=== PATIENT | male | born 1940 | race Caucasian/White ===

== ENCOUNTER → 2018-05-25 | Day surgery (SDC) | payer MEDICARE, OTHER ==
[2018-05-24 11:44] LABS: BASOPHILS % 0.5 % (0.0-1.0); EOSINOPHILS # (AUTO) 0.2 (0.0-0.4); EOSINOPHILS % 2.5 % (0.0-6.0); HEMOGLOBIN 16.1 g/dL (14.0-18.0); LYMPHOCYTES # (AUTO) 1.8 (1.0-3.2); MEAN CORPUSCULAR HEMOGLOBIN 33.6 pg (28-32); MEAN CORPUSCULAR HGB CONC 34.3 g/dL (31-35); MEAN CORPUSCULAR VOLUME 98.1 fL (81-99); MONOCYTES # (AUTO) 0.7 (0.2-0.8); MONOCYTES % 11.5 % (4.4-11.3); NEUTROPHILS # (AUTO) 3.4 (2.1-6.9); NEUTROPHILS % 55.3 % (38.7-80.0); PLATELET COUNT 173 x10e3/uL (140-360); RED BLOOD COUNT 4.79 x10e6/uL (4.3-5.7); RED CELL DISTRIBUTION WIDTH 12.8 % (11.7-14.4)
--- NOTE | 2018-05-24 11:52 | Diagnostic Imaging Report ---
PROCEDURE: Frontal and lateral views of the chest. COMPARISON: None. INDICATIONS: PREOPERATIVE CHEST XRAY FOR UROLOGY SURGERY FINDINGS: Lines/tubes: None. Lungs: The lungs are mildly hyperinflated. There is no evidence of pneumonia or pulmonary edema. Pleura: There is no pleural effusion or pneumothorax. Heart and mediastinum: Cardiac silhouette is unremarkable. Pulmonary vasculature is normal. Bones: No acute bony abnormality. Degenerative changes in the thoracic spine. IMPRESSION: 1. mildly hyperinflated lungs, which may be secondary to COPD. No consolidation or effusion. Jerad Mcguire M.D. Dictated by: Jerad Mcguire M.D. on 05/24/2018 at 11:57 Electronically approved by: Jerad Mcguire M.D. on 05/24/2018 at 11:57
[2018-05-24 12:00] LABS: ANION GAP 11.5 mmol/L (8-16); BLOOD UREA NITROGEN 15 mg/dL (7-26); BUN/CREATININE RATIO 17 (6-25); CALCIUM 9.8 mg/dL (8.4-10.2); CARBON DIOXIDE 30 mmol/L (22-29); CHLORIDE 104 mmol/L (98-107); CREATININE, SERUM 0.89 mg/dL (0.72-1.25); EST GLOMERULAR FILTRATION RATE > 60 ML/MIN (60-); GLUCOSE 101 mg/dL (74-118); POTASSIUM 5.5 mmol/L (3.5-5.1); SODIUM 140 mmol/L (136-145)
[~2018-05-25] MED LIST: ASPIR 8181 MG PO; BELLADONNA/OPIUM 30 MG SUPP RC ONE; CEFTRIAXONE SOD 1 GM VIAL ONE; CINNAMON500 MG PO; CO Q10200 MG PO; D3 PO; DEXAMETHASONE SOD PHOS INJ 4 MG/ML VIAL ONE; FENTANYL CITRATE/PF 100MCG/2 ML INJ ONE; FISH OIL 1,2001 EAC1 PO; GENTAMICIN 80MG/NS 100 ML 200 ML IV ONE; IOPAMIDOL 610MG/1ML 300 MG/ML VIAL IV ONE; LIDOCAINE HCL 2% LOCAL INJ 5 ML SDV VIAL INJ ONE; MULTI-VITAMIN1 EACH PO; ONDANSETRON HCL INJ 2 MG/ML VIAL ONE; PROPOFOL IV EMULSION 10 MG/ML 20 ML VIAL ONE; SEVOFLURANE INHAL SOLN 250 ML PEN BTL ONE; SIMVASTATIN20 MG PO; TURMERIC1 GM PO
--- NOTE | 2018-07-02 05:20 | Operative Report ---
DATE OF PROCEDURE: May 25, 2018 PREOPERATIVE DIAGNOSES: 1. Obstructive BPH. 2. Incomplete bladder emptying. POSTOPERATIVE DIAGNOSES: 1. Obstructive BPH. 2. Incomplete bladder emptying. OPERATIONS PERFORMED: 1. Cystourethroscopy with bilateral ureteral catheterization and retrograde ureteropyelography (separate procedure performed for the incomplete bladder emptying). 2. Interpretation of retrograde ureteropyelography. 3. Supervision of fluoroscopy. No radiologist present. 4. Cystourethroscopy with transurethral resection of the prostate utilizing the plasma button electrode. ANESTHESIA: General. COMPLICATIONS: None. CLINICAL SUMMARY: Ananda Pate is a 77-year-old man with obstructive BPH. He is failing medical therapy. He has a postvoid residual of 93 mL and the urinary maximum flow rate of only 6 mL per second. The patient understands the risks, benefits and alternatives of various modalities of managing BPH and elected to proceed with surgery today as planned. He is aware of the risks of bleeding, infection, injury to adjacent structures, incontinence, impotence, need for additional procedures and he elected to proceed. OPERATIVE PROCEDURE IN DETAIL: Informed consent was verified. Ananda Pate was properly identified and taken to the operating room, placed on the cystoscopy table in supine position. Anesthesia was uneventfully begun. The patient was then carefully and gently repositioned in the dorsal lithotomy position with all pressure points well padded. His genitalia were prepared and draped in usual sterile fashion. A 22.5-Zambian cystoscope sheath with the obturator in place was atraumatically inserted into the patient's urethra. It was guided down the normal distal urethra through the normal sphincteric region and into the prostate bed where we encountered visually obstructing BPH with highly elevated median bar and kissing lateral lobes. Panendoscopy of the urinary bladder revealed grade 2 trabeculations, but no tumors and no stones and no true diverticula. No suspicious lesions were identified. An 8-[place]ambian catheter was used to cannulate each ureter and retrograde ureteropyelography was performed. Interpretation of retrograde ureteropyelography: Contrast was instilled in retrograde fashion bilaterally. There were no tumors, no stones and no diverticula. Unobstructed drainage was observed bilaterally fluoroscopically. The resectoscope was atraumatically inserted. We then utilized the plasma button electrode to vaporize the prostate from the bladder neck, but never past the verumontanum and down to the surgical capsule. As we got to the surgical capsule located between the transition of the peripheral zone, there were numerous prostatic dilated ducts with intraprostatic stones. Innumerable stones were exposed and eventually evacuated. This finding confirms the suspicion that the patient has had a chronic prostatitis that has been very longstanding. We obtained excellent hemostasis. We verified all debris was removed from the bladder. The resectoscope was withdrawn. Navarro catheter was placed. He was placed on continuous irrigation with clear efflux. The patient was then uneventfully reversed from anesthesia and taken to the recovery room in stable condition. There were no complications during the procedure. The patient tolerated the procedure well. Estimated blood loss was minimal. Explicit postoperative instructions were given and we will plan on following the patient up in the office and we will perform his followup uroflowmetry and bladder ultrasonography. Job#: [id number]
== END | disposition home or self-care (01) ==
LOC: OR 05:53
PROVIDERS: ATTEND Urology
DX: N40.1 Benign prostatic hyperplasia with lower urinary tract symptoms (principal); N13.8 Other obstructive and reflux uropathy; R39.14 Feeling of incomplete bladder emptying; N42.0 Calculus of prostate; N41.9 Inflammatory disease of prostate, unspecified; N32.89 Other specified disorders of bladder; Z01.810 Encounter for preprocedural cardiovascular examination; Z01.812 Encounter for preprocedural laboratory examination; Z01.818 Encounter for other preprocedural examination; Z79.82 Long term (current) use of aspirin
CPT/HCPCS: 36415 ×2; 52005; 52601; 71046; 74420; 80048; 84132; 85025; 88300; 93005; C1758; J0696; J1100; J1580; J2001; J2405; Q9967

== ENCOUNTER → 2018-09-24 | Day surgery (SDC) | payer MEDICARE, OTHER ==
--- NOTE | 2018-09-20 16:12 | Diagnostic Imaging Report ---
EXAMINATION: CHEST 2 VIEWS INDICATION: Urologic Stricture. Preop COMPARISON: None FINDINGS: TUBES and LINES: None. LUNGS: The lungs are hyperinflated with chronic appearing change. There is no evidence of pneumonia or pulmonary edema. PLEURA: No pleural effusion or pneumothorax. HEART AND MEDIASTINUM: The cardiomediastinal silhouette is unremarkable. BONES AND SOFT TISSUES: No acute osseous lesion. Soft tissues are unremarkable. UPPER ABDOMEN: No free air under the diaphragm. IMPRESSION: Hyperinflated lungs with chronic appearing change. Signed by: Dr. Jairo Gupta M.D. on 09/20/2018 4:08 PM
[2018-09-20 16:16] LABS: BASOPHILS % 0.4 % (0.0-1.0); EOSINOPHILS # (AUTO) 0.2 (0.0-0.4); EOSINOPHILS % 3.5 % (0.0-6.0); HEMATOCRIT 46.4 % (38.2-49.6); HEMOGLOBIN 15.6 g/dL (14.0-18.0); MEAN CORPUSCULAR HEMOGLOBIN 33.5 pg (28-32); MEAN CORPUSCULAR HGB CONC 33.6 g/dL (31-35); MEAN CORPUSCULAR VOLUME 99.8 fL (81-99); MONOCYTES # (AUTO) 0.7 (0.2-0.8); MONOCYTES % 10.1 % (4.4-11.3); NEUTROPHILS # (AUTO) 3.9 (2.1-6.9); NEUTROPHILS % 56.9 % (38.7-80.0); PLATELET COUNT 200 x10e3/uL (140-360); RED BLOOD COUNT 4.65 x10e6/uL (4.3-5.7); RED CELL DISTRIBUTION WIDTH 12.5 % (11.7-14.4)
[2018-09-20 17:17] LABS: ANION GAP 15.1 mmol/L (8-16); BLOOD UREA NITROGEN 19 mg/dL (7-26); BUN/CREATININE RATIO 23 (6-25); CALCIUM 9.8 mg/dL (8.4-10.2); CARBON DIOXIDE 27 mmol/L (22-29); CHLORIDE 103 mmol/L (98-107); CREATININE, SERUM 0.83 mg/dL (0.72-1.25); EST GLOMERULAR FILTRATION RATE > 60 ML/MIN (60-); GLUCOSE 95 mg/dL (74-118); POTASSIUM 4.1 mmol/L (3.5-5.1); SODIUM 141 mmol/L (136-145)
[~2018-09-24] MED LIST changes: +ACETAMINOPHEN/CODEINE 300MG - 30MG TAB ONE; -BELLADONNA/OPIUM 30 MG SUPP RC ONE; +BELLADONNA/OPIUM 60 MG SUPP PR ONE; +DEXAMETHASONE SOD PHOS INJ 4 MG/ML VIAL IV ONE; -DEXAMETHASONE SOD PHOS INJ 4 MG/ML VIAL ONE; +EPHEDRINE SULFATE INJ 50 MG/10 ML SYR IV ONE; -GENTAMICIN 80MG/NS 100 ML 200 ML IV ONE; +LIDOCAINE JELLY 2% 10ML URO-JET ONE; +MIDAZOLAM HCL 2 MG/2 ML VIAL ONE; +ONDANSETRON HCL INJ 2 MG/ML VIAL IV ONE; -ONDANSETRON HCL INJ 2 MG/ML VIAL ONE; +PROPOFOL IV EMULSION 10 MG/ML 20 ML VIAL IV ONE; -PROPOFOL IV EMULSION 10 MG/ML 20 ML VIAL ONE; +SEVOFLURANE INHAL SOLN 250 ML PEN BTL INH ONE; -SEVOFLURANE INHAL SOLN 250 ML PEN BTL ONE
--- OUTSIDE RECORDS SUMMARY | 2018-09-24 05:05 | XMS REPORT | Continuity of Care Document ---
Author Author [facility] Interface Address Unknown Phone Unavailable Problems Problem Status Onset Date Classification Date Reported Comments Source Medications Medication Details Route Status Patient Instructions Ordering Provider Order Date Source Allergies, Adverse Reactions, Alerts Substance Category Reaction Severity Reaction type Status Date Reported Comments Source Immunizations Immunization Date Given Site Status Last Updated Comments Source Results Order Name Results Value Reference Range Date Interpretation Comments Source Vital Signs Vital Sign Value Date Comments Source Encounters Location Location Details Encounter Type Encounter Number Reason For Visit Attending Provider ADM Date DC Date Status Source Outpatient [id number] SHE SHEEHAN 04/06/2017 Active [facility] Christoph Procedures Procedure Code Date Perfomer Comments Source
[2018-09-24 08:50] VITALS: BP 127/71
--- NOTE | 2018-10-29 05:33 | Operative Report ---
DATE OF PROCEDURE: September 24, 2018 PREOPERATIVE DIAGNOSES 1. Obstructive BPH. 2. Urethral stricture disease. POSTOPERATIVE DIAGNOSES 1. Obstructive BPH. 2. Urethral stricture disease. OPERATIONS PERFORMED 1. Cystourethroscopy with direct vision internal urethrotomy (separate procedure performed for the urethral stricture). 2. Cystourethroscopy with bilateral ureteral catheterization and retrograde ureteropyelography (separate procedure performed for the obstructive BPH). 3. Interpretation retrograde ureteropyelography. 4. Supervision of fluoroscopy. No radiologist present. ANESTHESIA: General. COMPLICATIONS: None. CLINICAL SUMMARY: Ananda Pate is a 77-year-old man who underwent transurethral resection of the prostate. The patient has developed urethral stricture disease with symptomatology. He is brought for management. He is aware the risks of bleeding, infection, injury to adjacent structures, need for additional procedures, and elected to proceed. OPERATIVE PROCEDURE IN DETAIL: Informed consent was verified. Ananda Pate was properly identified and taken to the operating room and placed on the cystoscopy table in the supine position. Anesthesia was uneventfully begun. The patient was then carefully and gently reposition in the dorsal lithotomy position with all pressure points well-padded. His genitalia were prepared and draped in the usual sterile fashion. Direct vision with the obturator in place was atraumatically inserted into the patient's urethra. It was guided down the urethra, which was significant for wide caliber scarring until the bulbar region where there was a short, but tight urethral stricture. A guidewire was placed. We utilized the cold knife to incise the stricture at the 12 o'clock positions. We stayed away from the external urinary sphincter. The 22.5-[place] cystoscope sheath with visual obturator in place was then inserted alongside the guidewire, and guided through the prostate, through the normal sphincteric region and through the prostate bed, which was significant for non-complete healing and non-complete re-epithelialization of the prostatic urethral mucosa. We went into the patient's bladder where there were trabeculations noted. There was an area of erosion in the posterior bladder wall of unknown etiology. Normally positioned and configured ureteral orifices were identified. There were no suspicious lesions. An 8-[place] catheter was used to cannulate each ureter and retrograde ureteropyelograms were performed. Interpretation of retrograde ureteropyelography. Contrast was instilled in a retrograde fashion bilaterally. There were no tumors. No stones and no diverticula. Unobstructed drainage was observed bilaterally fluoroscopically. The cystoscope was withdrawn over the guidewire. A Clare-tip Navarro catheter was placed. It was inflated and then contrast was injected and performed cystography. Interpretation of cystography. Bladder wall was mildly trabeculated. There is no evidence of extravasation. The Navarro was in good position. We could not assess sphincteric reflux. The patient was then uneventfully reversed from anesthesia and taken to the recovery room in stable condition. There were no complications to the procedure. He tolerated the procedure well. Explicit postoperative instructions were given. Will follow the patient up in the office to remove his catheter. Job#: [id number] LEX
== END | disposition home or self-care (01) ==
LOC: OR 05:03
PROVIDERS: ATTEND Urology
DX: N35.912 Unspecified bulbous urethral stricture, male (principal); N40.1 Benign prostatic hyperplasia with lower urinary tract symptoms; N13.8 Other obstructive and reflux uropathy; N32.89 Other specified disorders of bladder; N20.0 Calculus of kidney; E78.5 Hyperlipidemia, unspecified; Z01.810 Encounter for preprocedural cardiovascular examination; Z01.812 Encounter for preprocedural laboratory examination; Z01.818 Encounter for other preprocedural examination; Z79.82 Long term (current) use of aspirin
CPT/HCPCS: 36415; 52005; 52276; 71046; 74420; 80048; 85025; 93005; C1758; J0696; J1100; J2001; J2250; J2405; J2704; Q9967